=== PATIENT | male | born 1960 | race Caucasian/White ===

== ENCOUNTER 2020-05-15 09:30 | Day surgery (SDC) | payer OTHER ==
[2020-05-08 14:35] LABS: CLARITY,URINE CLEAR (Clear); COLOR,URINE YELLOW (Yellow); GLUCOSE, URINE NEGATIVE (Neg); KETONES,URINE NEGATIVE (Neg); LEUKOCYTE ESTERASE ,URINE NEGATIVE (Neg); NITRITES, URINE NEGATIVE (Neg); OCCULT BLOOD,URINE SMALL (Neg); PH,URINE 7.5 (4.8-8.0); PROTEIN,URINE NEGATIVE (Neg); UROBILINOGEN,URINE 0.2 E.U/dL (0.2-1.0)
[2020-05-08 14:36] LABS: UA COLLECTION TYPE VOIDED
[2020-05-08 14:40] LABS: BASOPHILS # (AUTO) 0.1 X10'3 (0-0.2); BASOPHILS % (AUTO) 0.8 % (0-1); EOSINOPHILS # (AUTO) 0.3 X10'3 (0-0.9); EOSINOPHILS % (AUTO) 4.4 % (0-6); LYMPHOCYTES # (AUTO) 2.2 X10'3 (1.1-4.8); LYMPHOCYTES % (AUTO) 34.2 % (21-51); MEAN CORPUSCULAR HEMOGLOBIN 31.3 PG (27.0-31.0); MEAN CORPUSCULAR HGB CONC 35.1 g/dL (33.0-36.5); MEAN CORPUSCULAR VOLUME 89.1 FL (78-98); MEAN PLATELET VOLUME 7.7 FL (7.4-10.4); MONOCYTES # (AUTO) 0.6 X10'3 (0-0.9); MONOCYTES % (AUTO) 9.5 % (2-12); NEUTROPHILS # (AUTO) 3.3 X10'3 (1.8-7.7); NEUTROPHILS % (AUTO) 51.1 % (42-75); PRE OP HEMATOCRIT 39.5 % (42.0-52.0); PRE OP HEMOGLOBIN 13.9 g/dL (14.0-17.9); PRE OP PLATELET COUNT 317 X10'3 (140-440); RED BLOOD COUNT 4.44 X10'6 (4.70-6.10)
[2020-05-08 14:43] LABS: SPERM MANY /HPF (NEGATIVE)
[2020-05-08 14:45] LABS: SQUAMOUS EPITHELIAL CELL,UR FEW /LPF (FEW)
[2020-05-08 14:47] LABS: WBC,URINE 0-4 /HPF (0-4)
[2020-05-08 14:48] LABS: BACTERIA,URINE NONE SEEN /HPF (Neg)
[2020-05-08 14:50] LABS: ALBUMIN 3.9 G/DL (3.4-5.0); ALBUMIN/GLOBULIN RATIO 1.2 (1.1-1.5); ALKALINE PHOSPHATASE 71 IU/L (46-116); BLOOD UREA NITROGEN 22 MG/DL (7-18); CALCIUM 9.4 MG/DL (8.5-10.1); CHLORIDE 105 MMOL/L (99-107); CREATININE 0.71 MG/DL (0.60-1.10); PRE OP ALT 44 U/L (30-65); PRE OP ANION GAP 5 (8-16); PRE OP AST 24 U/L (10-37); PRE OP BILIRUB, TOTAL 0.5 MG/DL (0.0-1.0); PRE OP GLUCOSE 86 MG/DL (70-104); PRE OP POTASSIUM 4.2 MMOL/L (3.4-5.1); PRE OP SODIUM 143 MMOL/L (135-145); TOTAL CARBON DIOXIDE 32.7 MMOL/L (24-32); TOTAL PROTEIN 7.2 G/DL (6.4-8.2); eGFR > 90 ML/MIN
[2020-05-15] VITALS (8 sets, daily range): BP systolic 124–137; BP diastolic 73–86
[~2020-05-15] VITALS: Ht 170.2 cm; Wt 78.8 kg
[~2020-05-15 09:30] MED LIST: AZIL1TAB3 PO; NIFE60TA79 PO; cefazolin/dext.iso 2gm/100ml 100 ML IV ONE; famotidine 20mg tablet PO ONE; ringers solution, lacted 1,000 ML IV SCH
[2020-05-15] MEDS ORDERED: BUPIVAcaine/PF 2.5 mg/ml (0.25%) 30ml vial ONE (12:01)
[2020-05-15] MEDS ORDERED: sevoflurane 250ml liquid IH ONE (13:22)
[2020-05-15] MEDS ORDERED: neostigmine methylsulfate 1 MG/ML 10ml vial ONE (13:22)
[2020-05-15] MEDS ORDERED: glycopyrrolate 0.2mg/ml inj ONE (13:22)
[2020-05-15] MEDS ORDERED: midazolam 1 mg/ML 2ml injection ONE (13:24)
[2020-05-15] MEDS ORDERED: fentaNYL /PF 50mcg/ml 5ml ampule ONE (13:25)
[2020-05-15] MEDS ORDERED: LIDOcaine 2% 5ml jelly ONE (13:28)
[2020-05-15] MEDS ORDERED: propofol inj 20 ML IV ONE (13:37)
[2020-05-15] MEDS ORDERED: LIDOcaine 2% (20mg/ml) 5ml vial ONE (13:37)
[2020-05-15] MEDS ORDERED: rocuronium 10mg/ml inj IV ONE (13:37)
[2020-05-15] MEDS ORDERED: ondansetron/PF 4mg/2ml inj ONE (13:46)
[2020-05-15] MEDS ORDERED: dexamethasone sod phosphate 4mg/ml inj. ONE (13:46)
[2020-05-15] MEDS ORDERED: morphine 4 MG/ML inj SYRINge IV PRN (15:10)
[2020-05-15] MEDS ORDERED: proCHLORperazine 10 MG/2 ml inj IV PRN (15:10)
[2020-05-15] MEDS ORDERED: acetaminophen 1,000mg/100ml IV 100 ML IV PRN (15:10)
[2020-05-15] MEDS ORDERED: ondansetron/PF 4mg/2ml inj IV PRN (15:10)
[2020-05-15] MEDS ORDERED: morphine 2 MG/ML inj. syringe IV PRN (15:10)
[2020-05-15] MEDS ORDERED: labetalol 20mg/4ml (5mg/ml) syringe IV PRN (15:10)
[2020-05-15] MEDS ORDERED: ringers solution, lacted 1,000 ML IV SCH (15:10)
[2020-05-15] MEDS ORDERED: meperidine/PF 25mg/ml syringe IV PRN ×3 (15:10)
[2020-05-15] MEDS ORDERED: hydrALAZINE 20mg/ml inj. IV PRN (15:10)
--- NOTE | 2020-05-15 15:15 | NUR ---
Received from OR via BED , accompanied by Anesthesiologist DR DANIELS and report given by Anesthesiolgist. PATIENT WAKING UP, DENIES PAIN, V/S WNL, NEUROVASCULAR CHECKS INTACT, 20G PIV LUE, SCD ON, LAP SIGHTS OF ABDOMEN CDI.
[2020-05-15] MEDS ORDERED: HYDROcodone/acetaminophen 10/325mg tab PO ONE (15:30)
--- NOTE | 2020-05-15 16:15 | NUR ---
PATIENT A&OX4, DENIES PAIN, V/S WNL, NEUROVASCULAR CHECKS INTACT, 20G PIV LUE D/C, SCD OFF, LAP SIGHTS OF ABDOMEN CDI. I HAVE REVIEWED D/C INSTRUCTIONS WITH PATIENT AND FAMILY AND THEY HAVE VERBALIZED UNDERSTANDING. PATIENT D/C HOME WITH ALL BELONGINGS AND FAMILY GAVE TRANSPORT HOME.PATIENT WAS ABLE TO VOID AFTER SURGERY WELL.
== END 2020-05-15 16:15 | disposition home or self-care (01) ==
LOC: PAS 09:30
PROVIDERS: ATTEND Surgery
DX: K40.90 Unilateral inguinal hernia, without obstruction or gangrene, not specified as recurrent (principal); I10 Essential (primary) hypertension; Z79.899 Other long term (current) drug therapy; Z72.89 Other problems related to lifestyle; Z98.890 Other specified postprocedural states
CPT/HCPCS: 36415; 49650; 80053; 81001; 82948; 85025; C1758; C1781; J1100; J2001; J2250; J2405; J2704; J2710; J3010; J3490; J7120; S2900; A4215; A4618